=== PATIENT | male | born 1955 | race Caucasian/White ===

== ENCOUNTER 2024-10-06 14:40 | Emergency (ER) | payer SELFPAY ==
--- NOTE | 2024-10-06 14:45 | DI.RAD_ITS ---
Exam(s) XR CHEST 2V PA LATERAL EXAM: XR CHEST 2V PA LATERAL CLINICAL HISTORY: cough, myalgia, family with pneumonia TECHNIQUE: 2D digital imaging was performed. Two views. COMPARISON: No exams were available for comparison FINDINGS: HEART: Normal size. Aorta: Not dilated. PULMONARY VASCULATURE: Normal. MEDIASTINUM: Unremarkable. LUNGS: Severe emphysematous changes greater in the upper lobes. Mild scarring. PLEURAL SPACE: No pleural effusion or pneumothorax. BONE:Pectus excavatum deformity. Spine unremarkable. SOFT TISSUES: Unremarkable. IMPRESSION: Severe emphysematous changes. No acute abnormality. DATA REPOSITORY: RADIATION DOSE DELIVERED:
[2024-10-06 14:47] VITALS: BP 205/78; PULSE 70; RESP 16
--- NOTE | 2024-10-06 15:05 | ED.GENADUL_ITS ---
Discharge Plan Disposition Patient Disposition: Home Condition: Stable Discharge Details Clinical Impression: Upper respiratory infection, viral, Emphysema, unspecified, Elevated blood pressure reading without diagnosis of hypertension Primary Care Provider: Unknown,Unknown ED Provider: Kirstie Frank Home Meds and New Rx's Prescriptions: No Action No Known Home Meds Discharge Instructions Instructions: Viral Upper Respiratory Infection, Adult (DC) Additional Instructions: You were seen in the emergency department today for evaluation of bodyaches, cough, which are most concerning for a viral infection. You had an x-ray that did not show any sign of pneumonia, though we do note some changes in the upper part of your lungs concerning for emphysema. You also have elevated blood pressure readings in the emergency department. As we discussed, it is important that you start to see a physician in the outpatient environment for management of these chronic conditions. I did provide you with an albuterol rescue inhaler which you can use for shortness of breath, wheezing, and I recommend that you continue Tylenol and ibuprofen as needed for management of your body aches. Please follow-up with your primary care provider in the next few days to discuss this visit and any symptoms that change, worsen, or persist. Thank you for allowing us to be part of your care. HPI General Mode of arrival: ambulatory . Date/Time Provider Initiated Documentation: 10/06/24 14:51 . Limitations to Documentation: no limitations . Information obtained by: patient and old records reviewed . HPI Narrative: HPI: This is a 69-year-old male patient with a past history significant for remote pneumothorax, ex nicotine user, presenting for evaluation of 4 days of bodyaches, cough, shortness of breath. States that he had a recent sick contact, his daughter had bacterial pneumonia and he feels like he is having similar symptoms. Has noticed some mucus production, did not have a fever today, has otherwise been in his normal state of health. He has been eating and drinking normally for him, with no nausea, vomiting, or abdominal pain. Has not taken any medications for management of pain today and is amenable to trialing Tylenol and ibuprofen. Exam: Gen: Awake and alert, in no apparent distress HEENT: Non-icteric sclera Neck: Supple Lungs: No apparent respiratory distress, normal respiratory effort. Lung sounds clear and equal bilaterally without wheezes, rhonchi, rales CV: Appears well perfused, heart with regular rate and rhythm, strong distal pulses Abdomen: Non-distended, soft, nontender MSK: Moves 4 extremities without apparent limitation in ROM Skin: Visualized skin without rashes, cyanosis. Neuro: Normal Gait, no obvious focal deficits or facial asymmetry. Speaks in full, clear sentences. Psych: Appropriate for situation. MDM: This is a 69-year-old male patient presenting for evaluation of cough, body aches. Differential includes but is not limited to viral upper respiratory infection, pneumonia, bronchitis. I certainly considered reactive airway disease exacerbation that this patient is without focal lung findings or hypoxia to significantly increase my concern for same. No chest pain to suggest ACS, no evidence of fluid overload to suggest pulmonary edema or pleural effusion. No tachycardia or pleuritic chest pain to suggest PE. Tolerating p.o. and I have a low concern for metabolic and electrolyte derangement, kidney injury. We will obtain a Fluvid swab as well as a chest x-ray. I will provide the patient with a dose of Tylenol and ibuprofen for symptomatic management. ED Course: Fluvid negative, chest x-ray without evidence of acute pneumonia, though he does have emphysematous changes. I am still most concerned for a viral upper respiratory infection given the body aches and cough, in the absence of wheezing or hypoxia. The patient has not seen a physician in approximately 30 years, and I provided him with a referral to establish with primary care. I did provide him with an albuterol inhaler and spacer to trial for wheezing or shortness of breath. Blood pressure improved at time of discharge. At this time, the patient has had a full medical evaluation and is safe for discharge to home. They are hemodynamically stable, ambulatory, and tolerating PO. They are understanding of the follow-up plan and return precautions. They left our facility without incident. Kirstie Frank MD Related Data Home Medications ?Medication ?Instructions ?Recorded ?Confirmed Unknown [No Known Home Meds] 10/06/24 10/06/24 Allergies Allergy/AdvReac Type Severity Reaction Status Date / Time Penicillins Allergy Unknown Verified 10/06/24 14:47 General Stated Complaint: RespSymp [place]: 3 Course Vital Signs Vital signs: Vital Signs Pulse 70 10/06/24 14:47 Respiratory Rate 16 10/06/24 14:47 Blood Pressure 205/78 H 10/06/24 14:47 Pulse 70 10/06/24 14:47 Respiratory Rate 16 10/06/24 14:47 Respiratory Effort Short of Breath 10/06/24 14:50 Respiratory Depth Normal 10/06/24 14:50 Blood Pressure 205/78 H 10/06/24 14:47 Pain Level 0 10/06/24 14:47 Medical Decision Making Quality:SDOH Health Related Social Needs: No Data to Display PFSH All Active Problems (Updated 10/06/24 @ 15:47 by Kirstie Frank MD) Elevated blood pressure reading without diagnosis of hypertension (Acute) Emphysema, unspecified (Acute) Upper respiratory infection, viral (Acute) Social History Smoking/Tobacco Use Status: Never Smoking risk assessment performed?: Yes Alcohol Intake: current Alcohol Intake frequency: holidays/special occasions only Drug use: Never Substance use type: does not use Housing: house Do you feel safe at home: Yes Do you feel safe in your relationship?: Yes
[2024-10-06] MEDS: Acetaminophen 500 MG TAB 1000 MG PO (15:24)
[2024-10-06] MEDS: Ibuprofen 600 MG TAB PO (15:24)
[2024-10-06 15:37] LABS: COVID-19 PCR Negative (Negative); Influenza A PCR Negative (Negative); Influenza B PCR Negative (Negative); RSV PCR Negative (Negative)
[2024-10-06 15:39] LABS: Source NASOPHARYNX
[2024-10-06 15:45] VITALS: BP 161/82; PULSE 61; RESP 22; O2SAT 96
[2024-10-06] MEDS: Inhaler, Assist Device 1 EACH MC (15:51)
[2024-10-06] MEDS: Albuterol HFA 8 GM 60 PUFF INH IH (15:51)
== END 2024-10-06 16:00 | disposition home or self-care (01) ==
PROVIDERS: Student in an Organized Health Care Education/Training Program; Emergency Provider Emergency Medicine
DX: J06.9 Acute upper respiratory infection, unspecified (principal); B97.89 Other viral agents as the cause of diseases classified elsewhere; J43.9 Emphysema, unspecified; R03.0 Elevated blood-pressure reading, without diagnosis of hypertension
CPT/HCPCS: 87637; 99283; 71046

== ENCOUNTER 2024-10-15 15:41 | Outpatient (CLI) | payer SELFPAY ==
[2024-10-15 14:57] LABS: Anion Gap 7.2 mmol/L (3-11); BUN 12 mg/dL (7-18); CO2 31.8 mmol/L (21.0-32.0); CREATININE 1.1 mg/dL (0.70-1.30); Calcium 9.5 mg/dL (8.5-10.1); Calculated LDL 122 mg/dL (<100); Chloride 104 mmol/L (98-107); Cholesterol 220 mg/dL (<200); Estimated GFR 73.58 (mL/min/1.73m2); Glucose 81 mg/dL (74-106); HDL Cholesterol 43 mg/dL (40-60); Potassium 4.1 mmol/L (3.5-5.1); Sodium 143 mmol/L (136-145); Triglyceride 275 mg/dL (<150)
[2024-10-15 23:35] LABS: PSA, Screening 0.8 ng/mL (<=4.5)
== END 2024-10-15 15:42 | disposition home or self-care (01) ==
PROVIDERS: Visit Provider Nurse Practitioner Family
DX: Z13.1 Encounter for screening for diabetes mellitus (principal); Z13.6 Encounter for screening for cardiovascular disorders; Z12.5 Encounter for screening for malignant neoplasm of prostate
CPT/HCPCS: 36415; 80048; 80061; 84153